=== PATIENT | male | born 1975 | race Caucasian/White ===

== ENCOUNTER 2020-02-09 07:53 | Outpatient (REF) | payer BC, SELFPAY | END 2020-02-09 07:54 | disposition home or self-care (01) | LOC: HO.LAB 07:53 | PROVIDERS: PCP Internal Medicine; Visit Provider Internal Medicine | DX: Z20.828 Contact with and (suspected) exposure to other viral communicable diseases (principal) | CPT/HCPCS: C9803; U0003 ==

== ENCOUNTER 2020-04-11 16:11 | Outpatient (REF) | payer BC, SELFPAY | END 2020-04-11 16:12 | disposition home or self-care (01) | LOC: HO.LAB 16:11 | PROVIDERS: Visit Provider Internal Medicine | DX: Z20.822 Contact with and (suspected) exposure to COVID-19 (principal) | CPT/HCPCS: 36415; C9803; U0003 ==

== ENCOUNTER 2020-04-21 12:11 | Inpatient (IN) | payer BC, SELFPAY ==
[2020-04-21] VITALS (7 sets, daily range): BP systolic 116–156; BP diastolic 66–98; PULSE 96–115; RESP 16–30; TEMP 36.9–39.5; O2SAT 87–97; BMI 33.5
--- NOTE | 2020-04-21 12:31 | ECG_ITS ---
Test Reason : SOB Blood Pressure : / mmHG Vent. Rate : 117 BPM Atrial Rate : 117 BPM P-R Int : 158 ms QRS Dur : 092 ms QT Int : 316 ms P-R-T Axes : 059 -04 014 degrees QTc Int : 440 ms Sinus tachycardia Otherwise normal ECG When compared to the previous EKG of Sinus tachycardia present Referred By: Sharon Plunkett Electronically Signed By:Hadley Eddy
--- NOTE | 2020-04-21 12:31 | XR_ITS ---
EXAMINATION: XR CHEST CLINICAL INFORMATION: SOB, low O2 saturation COMPARISON: CT chest 04/29/2006 TECHNIQUE: Frontal view of the chest was obtained. FINDINGS: The lungs are hypoexpanded with increase interstitial markings in both lungs question interstitial pneumonitis. No consolidation seen. The heart size and pulmonary vascularity is normal. No gross bony abnormality. XR/XR chest 1V IMPRESSION: Bilateral increase interstitial markings, pneumonitis versus infiltrate. The lungs are hypoexpanded.
[2020-04-21 13:02] LABS: MANUAL DIFF FLAG NO
[2020-04-21 13:07] LABS: Basophils Percent Auto 0.1 % (0-2); Hematocrit 53.3 % (42-52); Hemoglobin 17.1 g/dl (14.0-18.0); Imm Gran Abs Auto 0.06 X10*3/uL (0.00-0.03); Imm Gran Pct Auto 0.5 % (0.0-0.4); Lymphocytes Absolute Auto 1.2 X10*3/uL (1.2-4.9); Lymphocytes Percent Auto 9.7 % (20-40); Mean Corpuscular HGB Conc 32.1 g/dl (31.0-36.0); Mean Corpuscular Hemoglobin 26.4 pg (27.0-33.0); Mean Corpuscular Volume 82.4 fL (80-98); Mean Platelet Volume 9.7 fL (9.4-12.4); Monocytes Absolute Auto 0.8 X10*3/uL (0.1-1.2); Monocytes Percent Auto 6.3 % (2-11); Neutrophils Absolute Auto 10.1 X10*3/uL (2.0-8.3); Neutrophils Percent Auto 83.4 % (45-73); Platelet Count 282 X10*3/uL (160-400); Red Blood Count 6.47 X10*6/uL (4.60-5.80); Red Cell Distribution Width 13.1 % (11.0-16.0); White Blood Count 12.1 X10*3/uL (4.8-10.8)
[2020-04-21] MEDS: 0.9 % Sodium Chloride 2,653.53 ML 2653.53 ML IVCONT (13:10)
[2020-04-21 13:13] LABS: INTERNATIONAL NORM RATIO 1.2 (0.9-1.1)
[2020-04-21 13:16] LABS: D Dimer 421 NG/ML; Partial Thromboplastin Time 33.1 SEC (24.1-38.0)
[2020-04-21] MEDS: Albuterol Sulfate (0.083%) 2.5 MG/3 ML VIAL.NEB 10 MG INHALE (13:20)
--- NOTE | 2020-04-21 13:22 | ED_ITS ---
HPI - SOB/Dyspnea General Chief Complaint: Dyspnea Stated Complaint: sob Time Seen by Provider: 04/21/20 12:30 Source: patient Mode of arrival: ambulatory Limitations: no limitations History of Present Illness HPI Narrative: 45yoM c PMHx of diabetes, hypertension, hyperlipidemia, asthma and gastroesophageal reflux disease who recently tested positive for COVID-19 on 04/11/2020 presenting to the ED with complaints of fevers up to 102, chills, generalized weakness, malaise, body aches, dry cough and shortness of breath, SOARES and orthopnea with left-sided chest wall/rib cage, LUQ abd pain worse with palpation for the past few days worse today. Denies any dizziness, lightheadedness, nausea/vomiting, palpitations, focal weakness, extremity edema, calf tenderness, any symptoms or any other symptoms complaints or concerns at this time. MD elicited complaint: shortness of breath, cough and pain with inspiration Pertinent past history: asthma and other (COVID-19) Onset (ago): day(s) Context: recent illness Timing: constant and progressively worsening Severity: moderate Exacerbating factors: lying flat, exertion, coughing, inspiration, talking and deep breaths Relieving factors: rest and upright position Known history of: asthma and diabetes Associated symptoms: pain with inspiration, fever, cough, wheezing, orthopnea and abdominal pain Treatment prior to arrival: none Related Data Home Medications Medication Instructions Recorded Confirmed albuterol sulfate 2 puff INHALATION Q6H PRN 04/21/20 04/21/20 budesonide 0.5 mg INHALATION BID 04/21/20 04/21/20 dulaglutide [Trulicity] 1.5 mg SUBCUT Q7D 04/21/20 04/21/20 empagliflozin [Jardiance] 1 tab PO DAILY 04/21/20 04/21/20 ezetimibe 1 tab PO DAILY 04/21/20 04/21/20 losartan 1 tab PO DAILY 04/21/20 04/21/20 omeprazole 40 mg PO BID@0630,1630 04/21/20 04/21/20 prednisone 2 tab PO QAM 04/21/20 04/21/20 sucralfate 1 tab PO TID 04/21/20 04/21/20 Allergies Allergy/AdvReac Type Severity Reaction Status Date / Time aspirin [ASA] Allergy Severe SWELLING Verified 04/21/20 12:28 ibuprofen [From MOTRIN] Allergy Severe SWELLING Verified 04/21/20 12:28 Review of Systems Review of Systems: Constitutional : + Fever, + Chills, + Fatigue, + Malaise, No Night Sweats ENT/Mouth : No Hearing loss, No Ear Pain, No Nasal Congestion, No Sinus Pain, No Hoarseness, No sore throat, No Rhinorrhea, No Swallowing Difficulty Eyes: No Eye Pain, No Swelling, No Redness, No Foreign Body, No Discharge, No Vision Changes Cardiovascular : + Chest wall pain, + SOB, + Dyspnea on Exertion, + Orthopnea, No Chest pain, No Edema, No extremity swelling, No Palpitations Respiratory : + Cough, + Wheezing, No Sputum, No Wheezing, No Dyspnea Gastrointestinal : No Nausea, No Vomiting, No Diarrhea, No abdominal Pain, No Hematochezia, No Melena Genitourinary : No irregular bleeding, No Dysuria, No Urinary Frequency, No Hematuria, No Urinary Incontinence, No Urgency, No Flank Pain, No Urinary Flow Changes, No Hesitancy Musculoskeletal : + Myalgias, No Joint Swelling, No joint pain, Skin : No Skin Lesions, No rash Neuro : No Weakness, No Numbness, No Paresthesias, No Loss of Consciousness, No Dizziness, No Headache Psych : No Anxiety/Panic, No Depression, No SI/HI/AH/VH Heme/Lymph: No Bruising, No Bleeding,No Lymphadenopathy Endocrine : No Polyuria, No Polydipsia, No Temperature Intolerance Yes all other systems are reviewed and are negative COUNTS INCLUDE 234 BEDS AT THE [facility] Past Medical History Attestation statement: The following information was validated with the patient. Medical History Asthma Diabetes HTN (hypertension) Social History Social History Advance Directives: No Advance Directives Information Provided: No Physical Exam Vital Signs: Vital Signs: Last Vital Signs Temp 103.1 F H 04/21/20 13:27 Pulse 115 H 04/21/20 13:27 Resp 25 H 04/21/20 13:27 BP 137/85 04/21/20 13:27 Pulse Ox 97 04/21/20 13:27 Body Mass Index 33.5 vital signs have been reviewed as normal and appeared to be correct. Blood pressure hypertensive. Heart rate tachycardia. Respiration rate tachypneic. Temperature febrile Oxygen saturation hypoxic. Appearance: Alert. Oriented X3. Moderate respiratory distress. Head: Normal external exam. Normocephalic. Atraumatic. Eyes: PERRLA. EOMI. Conjunctiva and sclera normal. Eyelids normal. ENT: EAC normal. TM's Normal. Pharynx normal. Uvula midline. Moist mucous membranes. No trismus noted. No drooling noted. No muffled voice noted. Neck: Normal inspection. Neck supple. FROM. No adenopathy. Thyroid Normal. Trachea midline. No meningeal signs. No neck mass noted. CVS: Normal heart rate and rhythm. Heart sound normal. No murmurs noted. Pulses normal throughout. Respiratory: Moderate respiratory distress with inspiratory and expiratory wheezing throughout with decreased breath sounds with accessory muscle usage n oted. No rhonchi/rales noted at this time. No flail chest. Chest wall tenderness at the lower left anterior/lateral aspect. No obvious deformities noted. No rashes/lesion/induration/fluctuance/ecchymosis or signs of infection noted. Abdomen: Soft and TTP to LUQ cwith guarding. Bowel sounds normal in all 4 quadrants. No distention noted. No organomegaly noted. No visible injury noted. No rigidity noted. No rebound tenderness noted. Negative Barclay sign/psoas sign/obturator's line/Rovsing sign. Back: No CVA tenderness. Full range of motion noted. Skin: Skin warm and dry. Normal skin color. Normal skin turgor. No rashes/lesions/lacerations noted. Extremities: No lower extremity edema. No calf tenderness noted. Extremities exhibit normal range of motion. Extremities nontender. Neuro: Oriented X 3. No motor deficit. No sensory deficit. Reflexes normal. Course Course Course Narrative: 12:30pm - 45yoM c PMHx of diabetes, hypertension, hyperlipidemia, asthma and gastroeso phageal reflux disease who recently tested positive for COVID-19 on 04/11/2020 presenting to the ED with complaints of fevers up to 102, chills, generalized weakness, malaise, body aches, dry cough and shortness of breath, SOARES and orthopnea with left-sided chest wall/rib cage, LUQ abd pain worse with palpation for the past few days worse today. - on exam patient is noted to be in moderate respiratory distress with inspiratory and expiratory wheezing throughout with accessory muscle usage noted. He is hypertensive, tachycardic, tachypneic, febrile and hypoxic at 89% on room air. Therefore was placed on 4 L of nasal cannula oxygen is now at 97% on room air. - Plan: Labs, chest x-ray, EKG, blood cultures, lactic acid, provide 975 mg of Tylenol and 5 mg of oxycodone for the patient's left upper quadrant/left anterior/lateral chest wall pain, provide a breathing treatment with 10 mg of albuterol, 125 mg of Solu-Medrol and if D-dimer is elevated will CT scan his chest for possible PE and CT scan of abdomen and pelvis with IV contrast to evaluate for any acute processes due to patient's left upper quadrant abdominal pain. Patient receiving 30ml/kg of IV fluids although patient is COVID positive and this is viral COVID sepsis. Med reconciliation order due to patient will need to be admitted due to the hypoxia requiring nasal cannula oxygen.. Reevaluation(s) Reevaluation #1: - patient's labs hemolyzed his labs returned at this time. - WBC 12.1. - D-dimer 421. - BUN 18 - glucose 174 - Ferritin 1128 - ALT 47 - LDH 277 - CRP 18.05 - All other labs WNL. - EKG Sinus tachycardia no acute ischemic changes and similar when compared to prior. - CXR revealed bilateral increased interstitial markings, pneumonitis versus infiltrate the lungs are hypoexpanded - awaiting CTA of chest for PE to admit. Time: 15:32 Reevaluation #2: - CT scan of abd/pelvis c IV contrast revealed enlarged fatty liver. Bilateral renal cysts - CT a of chest for PE negative for PE although revealed ground-glass opacities and infiltrate with bilateral pleural effusions and enlarged heart otherwise no other acute processes noted. - plan is to admit at this time for COVID pneumonia with hypoxia with viral sepsis discuss this patient with Tresa uGy PA-C who will admit the patient. Patient understands agrees the plan. Time: 16:37 MDM - SOB/Dyspnea Differential Diagnosis Differential diagnosis: Likely acute exacerbation of chronic obstructive airways disease, congestive heart failure, pneumonia, asthma with exacerbation, pulmonary embolism, pleural effusion and anemia Medical Records Attestation: I reviewed the patient's medical records. Lab Data Attestation: I reviewed the patient's lab results. Result diagrams: 04/21/20 12:56 04/21/20 14:44 Labs: Lab Results 04/21/20 04/21/20 04/21/20 Range/Units 12:56 12:56 12:56 WBC 12.1 H (4.8-10.8) X10*3/uL RBC 6.47 H (4.60-5.80) X10*6/uL Hgb 17.1 (14.0-18.0) g/dl Hct 53.3 H (42-52) % MCV 82.4 (80-98) fL MCH 26.4 L (27.0-33.0) pg MCHC 32.1 (31.0-36.0) g/dl RDW 13.1 (11.0-16.0) % Plt Count 282 (160-400) X10*3/uL MPV 9.7 (9.4-12.4) fL Immature Gran % (Auto) 0.5 H (0.0-0.4) % Neut % (Auto) 83.4 H (45-73) % Lymph % (Auto) 9.7 L (20-40) % [place] % (Auto) 6.3 (2-11) % Eos % (Auto) 0.0 (0-4) % Baso % (Auto) 0.1 (0-2) % Lymph # (Auto) 1.2 (1.2-4.9) X10*3/uL [place] # (Auto) 0.8 (0.1-1.2) X10*3/uL Eos # (Auto) 0.0 (0.0-0.4) X10*3/uL Baso # (Auto) 0.0 (0.0-0.2) X10*3/uL Abs Immat Gran (auto) 0.06 H (0.00-0.03) X10*3/uL Absolute Neuts (auto) 10.1 H (2.0-8.3) X10*3/uL Absolute Nucleated RBC 0.000 (0.0-0.012) X10*3/uL Nucleated RBC % (auto) 0.0 (0.0-0.2) /100WBC Hold Purple Top SEE NOTE PT (10.8-13.0) SEC INR (0.9-1.1) APTT (24.1-38.0) SEC D-Dimer NG/ML Sodium (135-145) mmol/L Potassium (3.3-5.1) mmol/L Chloride (96-108) mmol/L Carbon Dioxide (22-29) mmol/L Anion Gap (12-20) BUN (9-16) mg/dL Creatinine (0.5-1.4) mg/dL Estim Creat Clear Calc Estimated GFR Random Glucose (60-115) mg/dL Lactic Acid (0.5-2.0) mmol/L Calcium (8.4-10.2) mg/dL Magnesium (1.6-2.6) mg/dL Ferritin Total Bilirubin (0.0-1.0) mg/dL Direct Bilirubin (0.0-0.5) mg/dL AST (5-37) U/L ALT (0-40) U/L Alkaline Phosphatase (39-117) U/L Lactate Dehydrogenase (118-273) U/L C-Reactive Protein (< or = 0.50) mg/dL B-Natriuretic Peptide < 10 (<100) pg/mL Total Protein (6.5-8.0) g/dL Albumin (3.5-5.0) g/dL Procalcitonin ng/mL 04/21/20 04/21/20 04/21/20 Range/Units 12:57 12:57 12:57 WBC (4.8-10.8) X10*3/uL RBC (4.60-5.80) X10*6/uL Hgb (14.0-18.0) g/dl Hct (42-52) % MCV (80-98) fL MCH (27.0-33.0) pg MCHC (31.0-36.0) g/dl RDW (11.0-16.0) % Plt Count (160-400) X10*3/uL MPV (9.4-12.4) fL Immature Gran % (Auto) (0.0-0.4) % Neut % (Auto) (45-73) % Lymph % (Auto) (20-40) % [place] % (Auto) (2-11) % Eos % (Auto) (0-4) % Baso % (Auto) (0-2) % Lymph # (Auto) (1.2-4.9) X10*3/uL [place] # (Auto) (0.1-1.2) X10*3/uL Eos # (Auto) (0.0-0.4) X10*3/uL Baso # (Auto) (0.0-0.2) X10*3/uL Abs Immat Gran (auto) (0.00-0.03) X10*3/uL Absolute Neuts (auto) (2.0-8.3) X10*3/uL Absolute Nucleated RBC (0.0-0.012) X10*3/uL Nucleated RBC % (auto) (0.0-0.2) /100WBC Hold Purple Top PT 14.0 H (10.8-13.0) SEC INR 1.2 H (0.9-1.1) APTT 33.1 (24.1-38.0) SEC D-Dimer 421 NG/ML Sodium (135-145) mmol/L Potassium (3.3-5.1) mmol/L Chloride (96-108) mmol/L Carbon Dioxide (22-29) mmol/L Anion Gap (12-20) BUN (9-16) mg/dL Creatinine (0.5-1.4) mg/dL Estim Creat Clear Calc Estimated GFR Random Glucose (60-115) mg/dL Lactic Acid 1.5 (0.5-2.0) mmol/L Calcium (8.4-10.2) mg/dL Magnesium (1.6-2.6) mg/dL Ferritin Cancelled Total Bilirubin (0.0-1.0) mg/dL Direct Bilirubin (0.0-0.5) mg/dL AST (5-37) U/L ALT (0-40) U/L Alkaline Phosphatase (39-117) U/L Lactate Dehydrogenase (118-273) U/L C-Reactive Protein (< or = 0.50) mg/dL B-Natriuretic Peptide (<100) pg/mL Total Protein (6.5-8.0) g/dL Albumin (3.5-5.0) g/dL Procalcitonin ng/mL 04/21/20 04/21/20 Range/Units 14:44 14:44 WBC (4.8-10.8) X10*3/uL RBC (4.60-5.80) X10*6/uL Hgb (14.0-18.0) g/dl Hct (42-52) % MCV (80-98) fL MCH (27.0-33.0) pg MCHC (31.0-36.0) g/dl RDW (11.0-16.0) % Plt Count (160-400) X10*3/uL MPV (9.4-12.4) fL Immature Gran % (Auto) (0.0-0.4) % Neut % (Auto) (45-73) % Lymph % (Auto) (20-40) % [place] % (Auto) (2-11) % Eos % (Auto) (0-4) % Baso % (Auto) (0-2) % Lymph # (Auto) (1.2-4.9) X10*3/uL [place] # (Auto) (0.1-1.2) X10*3/uL Eos # (Auto) (0.0-0.4) X10*3/uL Baso # (Auto) (0.0-0.2) X10*3/uL Abs Immat Gran (auto) (0.00-0.03) X10*3/uL Absolute Neuts (auto) (2.0-8.3) X10*3/uL Absolute Nucleated RBC (0.0-0.012) X10*3/uL Nucleated RBC % (auto) (0.0-0.2) /100WBC Hold Purple Top PT (10.8-13.0) SEC INR (0.9-1.1) APTT (24.1-38.0) SEC D-Dimer NG/ML Sodium 142 (135-145) mmol/L Potassium 3.4 (3.3-5.1) mmol/L Chloride 109 H (96-108) mmol/L Carbon Dioxide 23 (22-29) mmol/L Anion Gap 13 (12-20) BUN 18 H (9-16) mg/dL Creatinine 0.75 (0.5-1.4) mg/dL Estim Creat Clear Calc 123.4 Estimated GFR > 60 Random Glucose 174 H (60-115) mg/dL Lactic Acid (0.5-2.0) mmol/L Calcium 7.3 L (8.4-10.2) mg/dL Magnesium 2.0 (1.6-2.6) mg/dL Ferritin 1128 H Total Bilirubin 0.6 (0.0-1.0) mg/dL Direct Bilirubin 0.2 (0.0-0.5) mg/dL AST 24 (5-37) U/L ALT 47 H (0-40) U/L Alkaline Phosphatase 75 (39-117) U/L Lactate Dehydrogenase 277 H (118-273) U/L C-Reactive Protein 18.05 H (< or = 0.50) mg/dL B-Natriuretic Peptide (<100) pg/mL Total Protein 6.1 L (6.5-8.0) g/dL Albumin 3.5 (3.5-5.0) g/dL Procalcitonin 0.29 ng/mL Imaging Data Chest x-ray: Attestation: I personally reviewed and interpreted this imaging study as follows: Radiologist's impression: FINDINGS: The lungs are hypoexpanded with increase interstitial markings in both lungs question interstitial pneumonitis. No consolidation seen. The heart size and pulmonary vascularity is normal. No gross bony abnormality. XR/XR chest 1V IMPRESSION: Bilateral increase interstitial markings, pneumonitis versus infiltrate. The lungs are hypoexpanded. CTA of chest for PE: Attestation: I personally reviewed and interpreted this imaging study as follows: Radiologist's impression: FINDINGS: There is good opacification of the pulmonary arteries. No evidence of large or central pulmonary embolism seen. Evaluation of the smaller segmental and subsegmental pulmonary artery artifact from respiratory motion There is bilateral patchy peripheral groundglass attenuation and more solid-appearing infiltrate, greatest at the lung bases. Chest CT appearance is compatible with Covid infection. There is shotty mediastinal lymphadenopathy. There is a prominent right subcarinal or hilar lymph node measuring 1.5 x 1.8 cm. There are additional smaller bilateral hilar lymph nodes. The heart is enlarged. There is no pericardial effusion. The thoracic aorta is normal in caliber. There are small bilateral pleural effusions, right greater than left. No chest wall mass or enlarged axillary lymph nodes are seen. Review at bone window is unremarkable. IMPRESSION: No evidence of large or central pulmonary embolism. Evaluation of smaller segmental and subsegmental pulmonary arteries is respiratory motion and bilateral peripheral groundglass attenuation and denser infiltrate, greatest at the lung bases. The appearance is compatible with Covid infection. Small bilateral pleural effusions, right greater than left. Right subcarinal or hilar lymph nodes. Enlarged heart. CT scan of abdomen and pelvis with IV contrast: Attestation: I personally reviewed and interpreted this imaging study as follows: Radiologist's impression: FINDINGS: There is patchy basilar infiltrates compatible with diagnosis of Covid infection. The liver is low in attenuation suggestive of fatty lesion. The liver is slightly enlarged. The gallbladder is normal. No biliary duct dilatation. The spleen, pancreas, and adrenal glands are normal. There is a 3 cm left renal cyst. There is a small 7 mm right fifth. The bladder and prostate gland are unremarkable. Small and large bowel is unremarkable. Stomach is unremarkable unremarkable. The appendix is unremarkable. No ascites or adenopathy. Vascular structures are normal. No hernia is seen. Bony structures are CT/CT abdomen pelvis w con IMPRESSION: Enlarged fatty liver. Bilateral renal cysts. ECG Data Attestation: I personally reviewed and interpreted this ECG as follows: ECG interpretation date: 04/21/20 ECG interpretation time: 13:53 Interpretation: Sinus tachycardia with ventricular rate of 117 with a normal TX interval normal QRS duration normal QT/QTC interval. No acute ischemic changes noted. Similar compared to prior EKG 03/22/2016. Critical Care Time Critical Care Time Critical Care Time: Yes Total Critical Care Time: 60 Attestation: I personally attest to this time spent taking care of the patient Discharge Plan Discharge Clinical Impression: Asthma with exacerbation, COVID-19, Hypoxia, Febrile, Viral sepsis, Pleural effusion, Renal cyst, Enlarged heart Patient Disposition: Admitted As Inpatient
[2020-04-21] MEDS: methylPREDNISolone Sod Succ/PF 125 MG/2 ML VIAL IVPUSH (13:24)
[2020-04-21] MEDS: cefTRIAXone sodium 1 GM in 0.9 % Sodium Chloride 100 ML IV (13:24)
--- NOTE | 2020-04-21 13:26 | CT_ITS ---
EXAMINATION: CT ABDOMEN AND PELVIS WITH IV CONTRAST CLINICAL INFORMATION: Left upper quadrant pain COMPARISON: None TECHNIQUE: Axial images through the abdomen and pelvis following oral and 85 mL Omnipaque 350 intravenous contrast. Sagittal and coronal technologist workstation were performed centimeter. This CT examination was performed using dose optimization techniques as appropriate, variously including the following: *Automated exposure control *Adjustment of mA and/or kV according to patient size (this includes techniques or standardized protocols for targeted exams where dose is matched to indication/reason for exam; i.e. extremities or head) *Use of iterative reconstruction technique FINDINGS: There is patchy basilar infiltrates compatible with diagnosis of Covid infection. The liver is low in attenuation suggestive of fatty lesion. The liver is slightly enlarged. The gallbladder is normal. No biliary duct dilatation. The spleen, pancreas, and adrenal glands are normal. There is a 3 cm left renal cyst. There is a small 7 mm right fifth. The bladder and prostate gland are unremarkable. Small and large bowel is unremarkable. Stomach is unremarkable unremarkable. The appendix is unremarkable. No ascites or adenopathy. Vascular structures are normal. No hernia is seen. Bony structures are CT/CT angio chest PE protocol IMPRESSION: Enlarged fatty liver. Bilateral renal cysts. EXAMINATION: Chest CTA CLINICAL INFORMATION: Covid infection. Hypoxia and elevated d-dimer. Evaluate for pulmonary embolism COMPARISON: None. TECHNIQUE: Axial images through the chest following 85 mL Omnipaque contrast. Sagittal and coronal reconstructions on the technologist workstation were performed centimeter. This CT examination was performed using dose optimization techniques as appropriate, variously including the following: *Automated exposure control *Adjustment of mA and/or kV according to patient size (this includes techniques or standardized protocols for targeted exams where dose is matched to indication/reason for exam; i.e. extremities or head) *Use of iterative reconstruction technique. FINDINGS: There is good opacification of the pulmonary arteries. No evidence of large or central pulmonary embolism seen. Evaluation of the smaller segmental and subsegmental pulmonary artery artifact from respiratory motion There is bilateral patchy peripheral groundglass attenuation and more solid-appearing infiltrate, greatest at the lung bases. Chest CT appearance is compatible with Covid infection. There is shotty mediastinal lymphadenopathy. There is a prominent right subcarinal or hilar lymph node measuring 1.5 x 1.8 cm. There are additional smaller bilateral hilar lymph nodes. The heart is enlarged. There is no pericardial effusion. The thoracic aorta is normal in caliber. There are small bilateral pleural effusions, right greater than left. No chest wall mass or enlarged axillary lymph nodes are seen. Review at bone window is unremarkable. IMPRESSION: No evidence of large or central pulmonary embolism. Evaluation of smaller segmental and subsegmental pulmonary arteries is respiratory motion and bilateral peripheral groundglass attenuation and denser infiltrate, greatest at the lung bases. The appearance is compatible with Covid infection. Small bilateral pleural effusions, right greater than left. Right subcarinal or hilar lymph nodes. Enlarged heart.
[2020-04-21 13:31] LABS: Lactic Acid 1.5 mmol/L (0.5-2.0)
--- NOTE | 2020-04-21 13:39 | PC.NURSE ---
With pt's permission, updated his sister Faustina with current status.
[2020-04-21 13:42] LABS: B Type Natriuretic Peptide < 10 pg/mL (<100)
[2020-04-21] MEDS: oxyCODONE HCl Immed Release 5 MG TABLET PO (14:03)
[2020-04-21] MEDS: Acetaminophen 325 MG TABLET 975 MG PO (14:03)
[2020-04-21 15:12] LABS: Alanine Aminotransferase 47 U/L (0-40); Albumin Level 3.5 g/dL (3.5-5.0); Alkaline Phosphatase 75 U/L (39-117); Anion Gap 13 (12-20); Aspartate Amino Transferase 24 U/L (5-37); Bilirubin Direct 0.2 mg/dL (0.0-0.5); Bilirubin Total 0.6 mg/dL (0.0-1.0); Blood Urea Nitrogen 18 mg/dL (9-16); C Reactive Protein 18.05 mg/dL (< or = 0.50); Calcium 7.3 mg/dL (8.4-10.2); Carbon Dioxide 23 mmol/L (22-29); Chloride 109 mmol/L (96-108); Creatinine Clr Calc Pharmacy 123.4; Estimated Glomerular Filt Rate > 60; Glucose Random 174 mg/dL (60-115); Lactate Dehydrogenase 277 U/L (118-273); Potassium 3.4 mmol/L (3.3-5.1); Sodium 142 mmol/L (135-145); Total Protein 6.1 g/dL (6.5-8.0)
[2020-04-21 15:30] LABS: Procalcitonin 0.29 ng/mL
[2020-04-21 15:31] LABS: Ferritin 1128 ng/mL (20-250)
[2020-04-21] MEDS: iohexoL 350 MG/ML 100 ML INFUS..BTL IV (15:45)
[2020-04-21 17:39] LABS: Color Urine STRAW; Glucose Urine UA 500 MG/DL (NEG); Leukocyte Esterase Urine NEG (NEG); Nitrite Urine NEG (NEG); PH 5.5 (5.0-8.0); Urine Blood NEG (NEG); Urine Ketones >=80 MG/DL (NEG); Urine Protein NEG (NEG-TRACE)
[2020-04-21 17:40] LABS: Appearance Urine CLEAR
[2020-04-21 18:00] LABS: Glucose, Whole Blood 234 mg/dL (60-115)
--- NOTE | 2020-04-21 18:03 | P.HPHOSP_ITS ---
History of Present Illness Date of Service: 04/21/20 Chief Complaint: Shortness of breath 45-year-old male with diabetes hypertension who was diagnosed with the COVID-19 on April 11 and the managed conservatively. He said he had felt better but then over the last several days also he has had increasing symptoms with a shortness of breath of fever and the presented to the emergency room where he was reportedly noted to be hypoxic with oxygen saturation of 89% on room air up to 93-97% with by nasal cannula. Checks x-ray showed bilateral infiltrate compatible with viral pneumonia and this was confirmed on a CT scan as well and pulmonary embolism is excluded. Patient is given ceftriaxone and azithromycin and Solu-Medrol. Review of Systems Review of Systems: Gen: + fever Resp: +sob, +cough CV: no chest, no SOARES, no leg edema GI: No n/v, no abd pain Neuro: No confusion [facility] Medical History Asthma Diabetes HTN (hypertension) Family history: reviewed and not pertinent Social History (Updated 04/21/20 @ 18:08 by Donn Ga MD) Alcohol intake: never Smoking Status: Never smoker Advance Directives: No Advance Directives Information Provided: No Meds Allergies Allergy/AdvReac Type Severity Reaction Status Date / Time aspirin [ASA] Allergy Severe SWELLING Verified 04/21/20 12:28 ibuprofen [From MOTRIN] Allergy Severe SWELLING Verified 04/21/20 12:28 Home Medications Medication Instructions Recorded Confirmed Type albuterol sulfate 2 puff INHALATION Q6H PRN 04/21/20 04/21/20 History budesonide 0.5 mg INHALATION BID 04/21/20 04/21/20 History dulaglutide [Trulicity] 1.5 mg SUBCUT Q7D 04/21/20 04/21/20 History empagliflozin [Jardiance] 1 tab PO DAILY 04/21/20 04/21/20 History ezetimibe 1 tab PO DAILY 04/21/20 04/21/20 History losartan 1 tab PO DAILY 04/21/20 04/21/20 History omeprazole 40 mg PO BID@0630,1630 04/21/20 04/21/20 History prednisone 2 tab PO QAM 04/21/20 04/21/20 History sucralfate 1 tab PO TID 04/21/20 04/21/20 History Physical Exam Vital Signs and Narrative: Vital Signs: Last Vital Signs Temp 98.4 F 04/21/20 17:14 Pulse 109 H 04/21/20 17:14 Resp 22 H 04/21/20 17:14 BP 118/66 04/21/20 17:14 Pulse Ox 92 04/21/20 17:14 Body Mass Index 33.5 Constitutional Awake and Alert, No apparent distress Neck Supple, No lymphadenopathy Cardiovascular RRR, No M/R/G, S1 S2, No S3 S4, No pedal edema Respiratory normal lung expansion, no accessory muscle use. Gastrointestinal Non tender, Non-distended Skin No rash Neurological Alert & oriented x3 Psychological Appropriate affect Results Labs CBC and Chem 7: 04/21/20 12:56 04/21/20 14:44 Labs: Laboratory Results - last 24 hr 04/21/20 04/21/20 04/21/20 12:56 12:56 12:56 MCV 82.4 MCH 26.4 L MCHC 32.1 RDW 13.1 Plt Count 282 MPV 9.7 Immature Gran % (Auto) 0.5 H Neut % (Auto) 83.4 H Lymph % (Auto) 9.7 L [place] % (Auto) 6.3 Eos % (Auto) 0.0 Baso % (Auto) 0.1 Lymph # (Auto) 1.2 [place] # (Auto) 0.8 Eos # (Auto) 0.0 Baso # (Auto) 0.0 Abs Immat Gran (auto) 0.06 H Absolute Neuts (auto) 10.1 H Absolute Nucleated RBC 0.000 Nucleated RBC % (auto) 0.0 Hold Purple Top SEE NOTE PT INR APTT D-Dimer Anion Gap Estim Creat Clear Calc Estimated GFR POC Glucose Random Glucose Lactic Acid Calcium Magnesium Ferritin Total Bilirubin Direct Bilirubin AST ALT Alkaline Phosphatase Lactate Dehydrogenase C-Reactive Protein B-Natriuretic Peptide < 10 Total Protein Albumin Procalcitonin Urine Color Urine Appearance Urine pH Ur Specific Lucinda Urine Protein Urine Glucose (UA) Urine Ketones Urine Blood Urine Nitrite Ur Leukocyte Esterase 04/21/20 04/21/20 04/21/20 12:57 12:57 12:57 MCV MCH MCHC RDW Plt Count MPV Immature Gran % (Auto) Neut % (Auto) Lymph % (Auto) [place] % (Auto) Eos % (Auto) Baso % (Auto) Lymph # (Auto) [place] # (Auto) Eos # (Auto) Baso # (Auto) Abs Immat Gran (auto) Absolute Neuts (auto) Absolute Nucleated RBC Nucleated RBC % (auto) Hold Purple Top PT 14.0 H INR 1.2 H APTT 33.1 D-Dimer 421 Anion Gap Estim Creat Clear Calc Estimated GFR POC Glucose Random Glucose Lactic Acid 1.5 Calcium Magnesium Ferritin Cancelled Total Bilirubin Direct Bilirubin AST ALT Alkaline Phosphatase Lactate Dehydrogenase C-Reactive Protein B-Natriuretic Peptide Total Protein Albumin Procalcitonin Urine Color Urine Appearance Urine pH Ur Specific Lucinda Urine Protein Urine Glucose (UA) Urine Ketones Urine Blood Urine Nitrite Ur Leukocyte Esterase 04/21/20 04/21/20 04/21/20 14:44 14:44 17:27 MCV MCH MCHC RDW Plt Count MPV Immature Gran % (Auto) Neut % (Auto) Lymph % (Auto) [place] % (Auto) Eos % (Auto) Baso % (Auto) Lymph # (Auto) [place] # (Auto) Eos # (Auto) Baso # (Auto) Abs Immat Gran (auto) Absolute Neuts (auto) Absolute Nucleated RBC Nucleated RBC % (auto) Hold Purple Top PT INR APTT D-Dimer Anion Gap 13 Estim Creat Clear Calc 123.4 Estimated GFR > 60 POC Glucose Random Glucose 174 H Lactic Acid Calcium 7.3 L Magnesium 2.0 Ferritin 1128 H Total Bilirubin 0.6 Direct Bilirubin 0.2 AST 24 ALT 47 H Alkaline Phosphatase 75 Lactate Dehydrogenase 277 H C-Reactive Protein 18.05 H B-Natriuretic Peptide Total Protein 6.1 L Albumin 3.5 Procalcitonin 0.29 Urine Color STRAW Urine Appearance CLEAR Urine pH 5.5 Ur Specific Lucinda 1.010 Urine Protein NEG Urine Glucose (UA) 500 H Urine Ketones >=80 Urine Blood NEG Urine Nitrite NEG Ur Leukocyte Esterase NEG 04/21/20 17:37 MCV MCH MCHC RDW Plt Count MPV Immature Gran % (Auto) Neut % (Auto) Lymph % (Auto) [place] % (Auto) Eos % (Auto) Baso % (Auto) Lymph # (Auto) [place] # (Auto) Eos # (Auto) Baso # (Auto) Abs Immat Gran (auto) Absolute Neuts (auto) Absolute Nucleated RBC Nucleated RBC % (auto) Hold Purple Top PT INR APTT D-Dimer Anion Gap Estim Creat Clear Calc Estimated GFR POC Glucose 234 H Random Glucose Lactic Acid Calcium Magnesium Ferritin Total Bilirubin Direct Bilirubin AST ALT Alkaline Phosphatase Lactate Dehydrogenase C-Reactive Protein B-Natriuretic Peptide Total Protein Albumin Procalcitonin Urine Color Urine Appearance Urine pH Ur Specific Lucinda Urine Protein Urine Glucose (UA) Urine Ketones Urine Blood Urine Nitrite Ur Leukocyte Esterase Imaging Radiologist's Impressions: Impressions Chest X-Ray 04/21/20 12:31 IMPRESSION: Bilateral increase interstitial markings, pneumonitis versus infiltrate. The lungs are hypoexpanded. Chest CTA 04/21/20 13:26 IMPRESSION: Enlarged fatty liver. Bilateral renal cysts. EXAMINATION: Chest CTA CLINICAL INFORMATION: Covid infection. Hypoxia and elevated d-dimer. Evaluate for pulmonary embolism COMPARISON: None. TECHNIQUE: Axial images through the chest following 85 mL Omnipaque contrast. Sagittal and coronal reconstructions on the technologist workstation were performed centimeter. This CT examination was performed using dose optimization techniques as appropriate, variously including the following: *Automated exposure control *Adjustment of mA and/or kV according to patient size (this includes techniques or standardized protocols for targeted exams where dose is matched to indication/reason for exam; i.e. extremities or head) *Use of iterative reconstruction technique. FINDINGS: There is good opacification of the pulmonary arteries. No evidence of large or central pulmonary embolism seen. Evaluation of the smaller segmental and subsegmental pulmonary artery artifact from respiratory motion There is bilateral patchy peripheral groundglass attenuation and more solid-appearing infiltrate, greatest at the lung bases. Chest CT appearance is compatible with Covid infection. There is shotty mediastinal lymphadenopathy. There is a prominent right subcarinal or hilar lymph node measuring 1.5 x 1.8 cm. There are additional smaller bilateral hilar lymph nodes. The heart is enlarged. There is no pericardial effusion. The thoracic aorta is normal in caliber. There are small bilateral pleural effusions, right greater than left. No chest wall mass or enlarged axillary lymph nodes are seen. Review at bone window is unremarkable. IMPRESSION: No evidence of large or central pulmonary embolism. Evaluation of smaller segmental and subsegmental pulmonary arteries is respiratory motion and bilateral peripheral groundglass attenuation and denser infiltrate, greatest at the lung bases. The appearance is compatible with Covid infection. Small bilateral pleural effusions, right greater than left. Right subcarinal or hilar lymph nodes. Enlarged heart. Abdomen/Pelvis CT 04/21/20 13:28 IMPRESSION: Enlarged fatty liver. Bilateral renal cysts. EXAMINATION: Chest CTA CLINICAL INFORMATION: Covid infection. Hypoxia and elevated d-dimer. Evaluate for pulmonary embolism COMPARISON: None. TECHNIQUE: Axial images through the chest following 85 mL Omnipaque contrast. Sagittal and coronal reconstructions on the technologist workstation were performed centimeter. This CT examination was performed using dose optimization techniques as appropriate, variously including the following: *Automated exposure control *Adjustment of mA and/or kV according to patient size (this includes techniques or standardized protocols for targeted exams where dose is matched to indication/reason for exam; i.e. extremities or head) *Use of iterative reconstruction technique. FINDINGS: There is good opacification of the pulmonary arteries. No evidence of large or central pulmonary embolism seen. Evaluation of the smaller segmental and subsegmental pulmonary artery artifact from respiratory motion There is bilateral patchy peripheral groundglass attenuation and more solid-appearing infiltrate, greatest at the lung bases. Chest CT appearance is compatible with Covid infection. There is shotty mediastinal lymphadenopathy. There is a prominent right subcarinal or hilar lymph node measuring 1.5 x 1.8 cm. There are additional smaller bilateral hilar lymph nodes. The heart is enlarged. There is no pericardial effusion. The thoracic aorta is normal in caliber. There are small bilateral pleural effusions, right greater than left. No chest wall mass or enlarged axillary lymph nodes are seen. Review at bone window is unremarkable. IMPRESSION: No evidence of large or central pulmonary embolism. Evaluation of smaller segmental and subsegmental pulmonary arteries is respiratory motion and bilateral peripheral groundglass attenuation and denser infiltrate, greatest at the lung bases. The appearance is compatible with Covid infection. Small bilateral pleural effusions, right greater than left. Right subcarinal or hilar lymph nodes. Enlarged heart. Assessment and Plan (1) COVID-19: Status: Acute (2) Hypoxia: Status: Acute (3) Asthma with exacerbation: Status: Acute (4) Hyperlipidemia: Status: Acute (5) HTN (hypertension): Status: Acute (6) Diabetes: Status: Acute 45-year-old male with diabetes hypertension hyperlipidemia at diagnosed with COVID 10 days ago presented with increasing dyspnea and hypoxia at bilateral infiltrate compatible with viral pneumonia although at this point superimposed bacterial infection cannot be excluded. He has a mild leukocytosis. Plan 1. COVID infection with a viral pneumonia 2. Acute hypoxic respiratory failure related to COVID-19 -will treat with dexamethasone 6 mg daily -oxygen as needed. To maintain oxygen saturation above 90%. -he is not a candidate for remdesivir -empiric antibiotics (azithromycin) 2. Acute exacerbation of asthma--likely related to COVID-19. -bronchodilator by GI MDI -steroid as above. 3. Diabetes continue home medication, sliding scale insulin and check glucose before meal and at bedtime. Trulicity amd Jardiance not on fourmulary 4. Hypertension--continue losartan. 5. Hyperlipidemia --Zetia 6. GERD--omeprazole. 7. DVT prophylaxis with Lovenox.
[2020-04-21] MEDS: Enoxaparin Sodium 40 MG/0.4 ML SYRINGE SUBCUT (18:34)
--- NOTE | 2020-04-21 19:46 | PC.NURSE ---
RT to give 1830 inhaler.
[2020-04-21] MEDS: Albuterol Sulfate 90 MCG 8 GM INHALER 2 PUFF INHALE ×3 (19:58→23:55)
[2020-04-21 21:04] LABS: Glucose, Whole Blood 299 mg/dL (60-115)
[2020-04-21] MEDS: Sucralfate 1 GM TABLET PO (21:11)
[2020-04-21] MEDS: Insulin Lispro 100 UNIT/ML 3 ML VIAL SUBCUT (21:12)
--- NOTE | 2020-04-21 21:15 | PC.NURSE ---
POC 299, medicated with 6 units of Insulin per MAR. Pt requesting to use the bathroom, ambulating to the bathroom with a steady gait. VSS. Continue to monitor.
--- NOTE | 2020-04-21 21:25 | PC.NURSE ---
Pt requesting to use the bathroom, ambulating with portable O2 tank to the bathroom. Upon return from the bathroom, while on O2 @ 5 lpm, pt noted to have an O2 sat of 87%. Pt coughing, tight dry cough. Pt states the cough has been persistent and unrelenting. Pt medicated with PRN inhaler with some relief. VSS at this time, call vargas within reach. Pt provided with a pillow, lights dim for comfort. Continue to monitor.
[2020-04-22] VITALS (11 sets, daily range): BP systolic 124–159; BP diastolic 66–78; PULSE 76–92; RESP 16–29; TEMP 36.6–37.3; O2SAT 87–97
[2020-04-22] MEDS: 0.9 % Sodium Chloride Flush 3 ML SYRINGE IVFLUSH ×4 (00:07→22:16)
--- NOTE | 2020-04-22 00:07 | PC.NURSE ---
Pt sleeping in bed at this time, wakes easily for inhaler. Denies pain/discomfort, SOB. Continue to monitor.
[2020-04-22] MEDS: Albuterol Sulfate 90 MCG 8 GM INHALER 2 PUFF INHALE ×5 (02:29→20:52)
[2020-04-22] MEDS: Acetaminophen 325 MG TABLET 650 MG PO (05:20)
--- NOTE | 2020-04-22 05:22 | PC.NURSE ---
Pt found resting in bed, reporting discomfort to chest from coughing. Pt states he has had the discomfort to his chest since he arrived, pt states it is the same pain that brought him to the ED. Pt states worsening chest discomfort with inspiration, position and movement. Pt requesting pain medication, states the cough syrup with codeine worked well. Pt medicated with PRN Tylenol for 6/10 discomfort from coughing. 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 Pt aware of 0630 POC and meds. Continue to monitor.
[2020-04-22] MEDS: Omeprazole 40 MG CAPSULE.DR PO ×2 (06:09→17:16)
--- NOTE | 2020-04-22 06:10 | PC.NURSE ---
POC 186 mg/dl. Medicated per MAY. VSS.
[2020-04-22 06:21] LABS: Glucose, Whole Blood 186 mg/dL (60-115)
[2020-04-22] MEDS: dexAMETHasone sod phosphate 4 MG/ML VIAL 6 MG IVPUSH (08:34)
[2020-04-22] MEDS: Insulin Lispro 100 UNIT/ML 3 ML VIAL SUBCUT ×4 (08:37→22:15)
[2020-04-22] MEDS: Losartan Potassium 50 MG TABLET PO (08:38)
[2020-04-22] MEDS: Ezetimibe 10 MG TABLET PO (08:38)
[2020-04-22] MEDS: Sucralfate 1 GM TABLET PO ×3 (08:38→22:15)
[2020-04-22 11:41] LABS: Glucose, Whole Blood 245 mg/dL (60-115)
--- NOTE | 2020-04-22 12:10 | PC.NURSE ---
patient o2 sat noted to be 87% on 5lpm via NC, patient attempted prone position w/ slow deep breaths, no improvement. non rebeather at 15lpm, O2 sat increased to 99%. tachypnea, NSR via tele. alert and oriented, able to speak in short sentences.
--- NOTE | 2020-04-22 14:46 | PC.NURSE ---
pt resting in the stretcher, alert and oriented currently on a non-rebreather and satting at 95%, pt' sats dropped to 88% on 5L, reports having some chest pressure at about 4/10, vs stable, ns on the moniotr.
--- NOTE | 2020-04-22 14:46 | HO.PM.IMPN ---
Subjective Subjective Date of Service: 04/23/20 Interval History: Seen in f/u for covid w/ acute hypoxic resp failure. Oxygen requirement has gone down and he is satting better Review of Systems Gen: + fever Resp: +sob, +cough CV: no chest, no SOARES, no leg edema GI: No n/v, no abd pain Neuro: No confusion Physical Exam Vital Signs: Vital Signs: Last Vital Signs Temp 99.1 F 04/22/20 06:00 Pulse 84 04/22/20 12:09 Resp 29 H 04/22/20 12:09 BP 124/67 04/22/20 12:09 Pulse Ox 97 04/22/20 12:09 Body Mass Index 33.5 General: AO X 3, no acute distress Resp: normal respiratory effort CVS: S1,S2,RRR GI: +BS, NT, no distention Skin: No rash Neuro: motor grossly intact Psych: appropriate affect Objective Data Current Medications Generic Name Dose Route Start Last Admin Trade Name Freq PRN Reason Stop Dose Admin Acetaminophen 650 mg 04/21/20 18:21 04/22/20 05:20 Acetaminophen 325 Mg Tablet PO 650 mg Q6H PRN Administration Pain, Mild (Pain Scale 1-3) Albuterol Sulfate 2 puff 04/21/20 18:24 04/21/20 21:23 Albuterol Sulfate 90 Mcg 8 Gm Inhaler INHALE 2 puff Q2H PRN Administration Shortness of Breath Albuterol Sulfate 2 puff 04/22/20 12:00 04/22/20 11:06 Albuterol Sulfate 90 Mcg 8 Gm Inhaler INHALE 2 puff RQ4H LINDA Administration Dexamethasone Sodium Phosphate 6 mg 04/22/20 14:45 Dexamethasone Sod Phosphate 4 Mg/Ml Vial IVPUSH DAILY LINDA Ezetimibe 10 mg 04/22/20 09:00 04/22/20 08:38 Ezetimibe 10 Mg Tablet PO 10 mg DAILY LINDA Administration Enoxaparin Sodium 40 mg 04/21/20 18:30 04/21/20 18:34 Enoxaparin Sodium 40 Mg/0.4 Ml Syringe SUBCUT 40 mg Q24H LINDA Administration Insulin Human Lispro 0 unit 04/21/20 21:00 04/22/20 11:47 Insulin Lispro 100 Unit/Ml 3 Ml Vial SUBCUT 4 unit QIDACHS LINDA Administration Protocol Losartan Potassium 50 mg 04/22/20 09:00 04/22/20 08:38 Losartan Potassium 50 Mg Tablet PO 50 mg DAILY LINDA Administration Protocol Magnesium Hydroxide 30 ml 04/21/20 18:21 Milk Of Magnesia 30 Ml Oral.Susp PO DAILY PRN Constipation Omeprazole 40 mg 04/22/20 06:30 04/22/20 06:09 Omeprazole 40 Mg Capsule. PO 40 mg BID@7206,2720 [facility] Administration Pharmacy Consult 1 each 04/21/20 12:33 Consult Rx Perform Med Rec MISCELLANE ONCE PRN Consult order Sodium Chloride 3 ml 04/22/20 00:00 04/22/20 08:38 0.9 % Sodium Chloride Flush 3 Ml Syringe IVFLUSH 3 ml QSHIFT [facility] Administration Sucralfate 1 gm 04/21/20 21:00 04/22/20 14:44 Sucralfate 1 Gm Tablet PO 1 gm TID LINDA Administration Zolpidem Tartrate 5 mg 04/21/20 18:21 Zolpidem Tartrate 5 Mg Tablet PO BEDTIME PRN Insomnia Labs CBC & Chem 7: 04/21/20 12:56 04/21/20 14:44 Assessment and Plan (1) COVID-19: Status: Acute (2) Hypoxia: Status: Acute (3) Asthma with exacerbation: Status: Acute (4) Hyperlipidemia: Status: Acute (5) HTN (hypertension): Status: Acute (6) Diabetes: Status: Acute Assessment and Plan: 45-year-old male with diabetes hypertension hyperlipidemia at diagnosed with COVID-19 on 04/11/20 (10 prior to admission) and conservatively and now here with increasing dyspnea and hypoxia, bilateral infiltrate on CXR compatible with viral pneumonia, although the posibility of bacterial infection cannot be excluded. Plan 1. COVID infection with a viral pneumonia 2. Acute hypoxic respiratory failure related to COVID-19 -will treat with dexamethasone 6 mg daily D3/10 -Not candidate for remdesevir -check IgG level, -oxygen to maintain oxygen saturation above 90%. -he is not a candidate for remdesivir -empiric antibiotics (azithromycin) 2. Acute exacerbation of asthma--likely related to COVID-19. -bronchodilator by MDI -Dexamethasone as above. 3. Diabetes continue home medication, sliding scale insulin and check glucose before meal and at bedtime. Trulicity amd Jardiance not on fourmulary 4. Hypertension--continue losartan. 5. Hyperlipidemia --Zetia 6. GERD--omeprazole. 7. DVT prophylaxis with Lovenox.
[2020-04-22] MEDS: cefTRIAXone sodium 1 GM in 0.9 % Sodium Chloride 50 ML IV (15:53)
--- NOTE | 2020-04-22 15:55 | PC.NURSE ---
bandar rt decreased the non-rebreather from 15l down to 12l, pt satting at 95 at this time.
[2020-04-22] MEDS: Azithromycin 500 MG in 0.9 % Sodium Chloride 250 ML 125 MG IV (16:58)
--- NOTE | 2020-04-22 18:31 | PC.NURSE ---
called [facility] [place] [facility] awaiting call back
[2020-04-22] MEDS: Enoxaparin Sodium 40 MG/0.4 ML SYRINGE SUBCUT (18:50)
[2020-04-22 21:33] LABS: Glucose, Whole Blood 289 mg/dL (60-115)
[2020-04-23] VITALS (9 sets, daily range): BP systolic 115–157; BP diastolic 67–98; PULSE 69–88; RESP 18–99; TEMP 35.5–36.8; O2SAT 89–99
[2020-04-23 05:19] LABS: Glucose, Whole Blood 266 mg/dL (60-115)
[2020-04-23] MEDS: Omeprazole 40 MG CAPSULE.DR PO ×2 (06:08→15:16)
[2020-04-23] MEDS: Albuterol Sulfate 90 MCG 8 GM INHALER 2 PUFF INHALE ×3 (07:37→14:55)
[2020-04-23 08:06] LABS: Glucose, Whole Blood 236 mg/dL (60-115)
[2020-04-23] MEDS: 0.9 % Sodium Chloride Flush 3 ML SYRINGE IVFLUSH ×3 (08:12→23:24)
[2020-04-23] MEDS: Ezetimibe 10 MG TABLET PO (08:12)
[2020-04-23] MEDS: Sucralfate 1 GM TABLET PO ×3 (08:12→20:53)
[2020-04-23] MEDS: dexAMETHasone sod phosphate 4 MG/ML VIAL 6 MG IVPUSH (08:12)
[2020-04-23] MEDS: Insulin Lispro 100 UNIT/ML 3 ML VIAL SUBCUT ×4 (08:13→20:53)
[2020-04-23] MEDS: Losartan Potassium 50 MG TABLET PO (08:13)
[2020-04-23 11:25] LABS: Glucose, Whole Blood 249 mg/dL (60-115)
[2020-04-23] MEDS: cefTRIAXone sodium 1 GM in 0.9 % Sodium Chloride 50 ML IV (15:12)
--- NOTE | 2020-04-23 15:13 | MHC.CM.PN ---
PT ON ISOLATION UNIT, SYEDA CONTACTED HIM VIA CELL PHONE [phone]. PT REPORTS HE LIVES AT HOME WITH HIS AND HE IS FULLY INDEPENDENT WITH CARE AND MOBILITY. PT WORKS AND DRIVES. PT REPORTS THE ONLY DME HE HAS IS A NEBULIZER. PT DOES NOT HAVE A HCP AND IS INTERESTED IN RECEIVING INFORMATION ABOUT COMPLETING ONE. INFORMATION AND DOCUMENT WILL BE MAILED TO PT HOME WELL A SECOND BLANK DOCUMENT IN CASE HIS CHOOSES TO COMPLETE ONE. CURRENT DC PLAN IS HOME WITH NO SERVICES PT WILL SELF ARRANGE TRANSPORTATION
[2020-04-23] MEDS: Azithromycin 500 MG in 0.9 % Sodium Chloride 250 ML 125 MG IV (15:51)
[2020-04-23 16:03] LABS: Glucose, Whole Blood 316 mg/dL (60-115)
[2020-04-23] MEDS: Enoxaparin Sodium 40 MG/0.4 ML SYRINGE SUBCUT (18:09)
[2020-04-23 19:37] LABS: Glucose, Whole Blood 196 mg/dL (60-115)
[2020-04-24] VITALS (11 sets, daily range): BP systolic 132–156; BP diastolic 76–97; PULSE 56–82; RESP 18–20; TEMP 36.4–37.2; O2SAT 91–95; BMI 33.5
[2020-04-24] MEDS: Omeprazole 40 MG CAPSULE.DR PO ×2 (05:52→17:13)
[2020-04-24] MEDS: Albuterol Sulfate 90 MCG 8 GM INHALER 2 PUFF INHALE ×3 (08:06→15:08)
[2020-04-24 09:52] LABS: Glucose, Whole Blood 263 mg/dL (60-115)
[2020-04-24] MEDS: Ezetimibe 10 MG TABLET PO (10:17)
[2020-04-24] MEDS: Sucralfate 1 GM TABLET PO ×3 (10:17→21:13)
[2020-04-24] MEDS: Losartan Potassium 50 MG TABLET PO (10:17)
[2020-04-24] MEDS: dexAMETHasone sod phosphate 4 MG/ML VIAL 6 MG IVPUSH (10:18)
[2020-04-24] MEDS: 0.9 % Sodium Chloride Flush 3 ML SYRINGE IVFLUSH ×2 (10:18→15:11)
--- NOTE | 2020-04-24 11:04 | MHC.CM.PN ---
Patient requires O2 at 2 liters via NC. Also on Iv azithromax, IV ceftriaxone and IV Decadeon. Discharge plan is home no services. Patient will arrange own transport. CM will continue to follow patient for discharge needs.
[2020-04-24 11:34] LABS: SARS COV2 IgG Positive (Negative)
[2020-04-24 11:44] LABS: Glucose, Whole Blood 259 mg/dL (60-115)
[2020-04-24] MEDS: Insulin Lispro 100 UNIT/ML 3 ML VIAL SUBCUT ×3 (11:56→21:12)
[2020-04-24] MEDS: cefTRIAXone sodium 1 GM in 0.9 % Sodium Chloride 50 ML IV (15:10)
[2020-04-24] MEDS: Azithromycin 500 MG in 0.9 % Sodium Chloride 250 ML 125 MG IV (16:12)
--- NOTE | 2020-04-24 16:42 | P.PNIM_ITS ---
Subjective Subjective Date of Service: 04/24/20 Interval History: still on 2L via NC dyspnea + chest pressure improved no fever Physical Exam Vital Signs: Vital Signs: Last Vital Signs Temp 97.9 F 04/24/20 15:23 Pulse 78 04/24/20 15:23 Resp 18 04/24/20 15:23 BP 138/87 04/24/20 15:23 Pulse Ox 93 04/24/20 15:23 Body Mass Index 33.5 Gen: in no acute distress HEENT: sclera anicteric, moist mucus membranes Neck: supple Lungs: no respiratory distress, auscultation deferred due to COVID-19 Heart: normal peripheral pulses Abd: soft, non-tender, non-distended Ext: no cyanosis, clubbing, or edema Skin: warm/well-perfused Neuro: alert and oriented x3, no focal findings Psych: appropriate affect Objective Data Current Medications Generic Name Dose Route Start Last Admin Trade Name Freq PRN Reason Stop Dose Admin Acetaminophen 650 mg 04/21/20 18:21 04/22/20 05:20 Acetaminophen 325 Mg Tablet PO 650 mg Q6H PRN Administration Pain, Mild (Pain Scale 1-3) Albuterol Sulfate 2 puff 04/21/20 18:24 04/21/20 21:23 Albuterol Sulfate 90 Mcg 8 Gm Inhaler INHALE 2 puff Q2H PRN Administration Shortness of Breath Albuterol Sulfate 2 puff 04/22/20 12:00 04/24/20 15:08 Albuterol Sulfate 90 Mcg 8 Gm Inhaler INHALE 2 puff RQ4H LINDA Administration Dexamethasone Sodium Phosphate 6 mg 04/22/20 14:45 04/24/20 10:18 Dexamethasone Sod Phosphate 4 Mg/Ml Vial IVPUSH 6 mg DAILY LINDA Administration Ezetimibe 10 mg 04/22/20 09:00 04/24/20 10:17 Ezetimibe 10 Mg Tablet PO 10 mg DAILY LINDA Administration Enoxaparin Sodium 40 mg 04/21/20 18:30 04/23/20 18:09 Enoxaparin Sodium 40 Mg/0.4 Ml Syringe SUBCUT 40 mg Q24H LINDA Administration Azithromycin 500 mg/ Sodium 250 mls @ 125 mls/hr 04/22/20 16:00 04/24/20 16 :12 Chloride IV 125 mls/hr Q24H LINDA Administration Ceftriaxone Sodium 1 gm/ 50 mls @ 100 mls/hr 04/22/20 16:00 04/24/20 16:22 Sodium Chloride IV Infused Q24H [facility] Infusion Insulin Human Lispro 0 unit 04/21/20 21:00 04/24/20 11:56 Insulin Lispro 100 Unit/Ml 3 Ml Vial SUBCUT 6 unit QIDACHS [facility] Administration Protocol Losartan Potassium 50 mg 04/22/20 09:00 04/24/20 10:17 Losartan Potassium 50 Mg Tablet PO 50 mg DAILY [facility] Administration Protocol Magnesium Hydroxide 30 ml 04/21/20 18:21 Milk Of Magnesia 30 Ml Oral.Susp PO DAILY PRN Constipation Omeprazole 40 mg 04/22/20 06:30 04/24/20 05:52 Omeprazole 40 Mg Capsule. PO 40 mg BID@0630,1630 [facility] Administration Pharmacy Consult 1 each 04/21/20 12:33 Consult Rx Perform Med Rec MISCELLANE ONCE PRN Consult order Sodium Chloride 3 ml 04/22/20 00:00 04/24/20 15:11 0.9 % Sodium Chloride Flush 3 Ml Syringe IVFLUSH 3 ml QSHIFT [facility] Administration Sucralfate 1 gm 04/21/20 21:00 04/24/20 15:11 Sucralfate 1 Gm Tablet PO 1 gm TID [facility] Administration Zolpidem Tartrate 5 mg 04/21/20 18:21 Zolpidem Tartrate 5 Mg Tablet PO BEDTIME PRN Insomnia Labs CBC & Chem 7: 04/21/20 12:56 04/21/20 14:44 Microbiology Microbiology Results: Microbiology 04/21/20 12:43 Blood - Venous Blood Culture - Preliminary No growth after 48 hours. 04/21/20 12:56 Blood - Venous Blood Culture - Preliminary No growth after 48 hours. Assessment and Plan (1) COVID-19: Status: Acute (2) Hypoxia: Status: Acute (3) Asthma with exacerbation: Status: Acute (4) Hyperlipidemia: Status: Acute (5) HTN (hypertension): Status: Acute (6) Diabetes: Status: Acute Assessment and Plan: hospital d#4 45yo M with DM2, HTN, HLD dx COVID-19 04/11/20 admitted for acute hypoxic respiratory failure # COVID-19 pneumonia - dexamethasone d#07/01 - out of window for remdesivir- not in viral replication phase - ceftriaxone + azithromycin d#3, d/c ABX tomorrow if PCT remains low # acute hypoxic resp failure - wean O2 as tolerated # acute asthma exacerbation - dexamethasone as above, prn KEYSHAWN # DM2 - correction-dose lispro # HTN - losartan # dyslipidemia - ezetimibe # GERD - PPI, sucralfate # VTE ppx - LMWH
[2020-04-24 16:45] LABS: Glucose, Whole Blood 273 mg/dL (60-115)
[2020-04-24] MEDS: Enoxaparin Sodium 40 MG/0.4 ML SYRINGE SUBCUT (17:13)
[2020-04-24 20:05] LABS: Glucose, Whole Blood 238 mg/dL (60-115)
[2020-04-24] MEDS: Zolpidem Tartrate 5 MG TABLET PO (21:16)
[2020-04-25] VITALS (11 sets, daily range): BP systolic 135–153; BP diastolic 71–93; PULSE 67–76; RESP 18–20; TEMP 36.5–37; O2SAT 91–94
[2020-04-25] MEDS: 0.9 % Sodium Chloride Flush 3 ML SYRINGE IVFLUSH ×4 (00:12→20:22)
[2020-04-25] MEDS: Omeprazole 40 MG CAPSULE.DR PO ×2 (06:25→16:59)
[2020-04-25 06:28] LABS: Basophils Percent Auto 0.1 % (0-2); Eosinophils Percent Auto 0.1 % (0-4); Hematocrit 43.6 % (42-52); Hemoglobin 14.1 g/dl (14.0-18.0); Imm Gran Abs Auto 0.12 X10*3/uL (0.00-0.03); Imm Gran Pct Auto 1.6 % (0.0-0.4); Lymphocytes Percent Auto 25.5 % (20-40); MANUAL DIFF FLAG SCAN; Mean Corpuscular HGB Conc 32.3 g/dl (31.0-36.0); Mean Corpuscular Hemoglobin 25.9 pg (27.0-33.0); Mean Corpuscular Volume 80.1 fL (80-98); Mean Platelet Volume 9.6 fL (9.4-12.4); Monocytes Percent Auto 12.3 % (2-11); Neutrophils Absolute Auto 4.7 X10*3/uL (2.0-8.3); Neutrophils Percent Auto 60.4 % (45-73); Platelet Count 305 X10*3/uL (160-400); Red Blood Count 5.44 X10*6/uL (4.60-5.80); Red Cell Distribution Width 12.7 % (11.0-16.0); SCAN SMEAR FLAG 1; White Blood Count 7.7 X10*3/uL (4.8-10.8)
[2020-04-25 06:39] LABS: D Dimer < 200 NG/ML
[2020-04-25 07:04] LABS: Alanine Aminotransferase 65 U/L (0-40); Albumin Level 3.3 g/dL (3.5-5.0); Alkaline Phosphatase 62 U/L (39-117); Anion Gap 13 (12-20); Aspartate Amino Transferase 36 U/L (5-37); Bilirubin Total 0.4 mg/dL (0.0-1.0); Blood Urea Nitrogen 17 mg/dL (9-16); C Reactive Protein 1.87 mg/dL (< or = 0.50); Calcium 8.1 mg/dL (8.4-10.2); Carbon Dioxide 26 mmol/L (22-29); Chloride 105 mmol/L (96-108); Creatinine Clr Calc Pharmacy 130.3; Estimated Glomerular Filt Rate > 60; Glucose Random 142 mg/dL (60-115); Lactate Dehydrogenase 270 U/L (118-273); Potassium 3.9 mmol/L (3.3-5.1); Sodium 140 mmol/L (135-145); Total Protein 6.2 g/dL (6.5-8.0)
[2020-04-25 07:12] LABS: Ferritin 1073 ng/mL (20-250)
[2020-04-25 07:13] LABS: Procalcitonin 0.11 ng/mL
[2020-04-25] MEDS: Albuterol Sulfate 90 MCG 8 GM INHALER 2 PUFF INHALE ×4 (07:49→20:04)
[2020-04-25 08:01] LABS: Glucose, Whole Blood 150 mg/dL (60-115)
[2020-04-25 08:43] LABS: SLIDE REVIEW VERIFIED
[2020-04-25] MEDS: Losartan Potassium 50 MG TABLET PO (08:47)
[2020-04-25] MEDS: dexAMETHasone sod phosphate 4 MG/ML VIAL 6 MG IVPUSH (08:47)
[2020-04-25] MEDS: Ezetimibe 10 MG TABLET PO (08:48)
[2020-04-25] MEDS: Sucralfate 1 GM TABLET PO ×3 (08:48→20:19)
[2020-04-25 11:18] LABS: Glucose, Whole Blood 278 mg/dL (60-115)
[2020-04-25] MEDS: Insulin Lispro 100 UNIT/ML 3 ML VIAL SUBCUT ×3 (12:21→20:19)
--- NOTE | 2020-04-25 13:13 | P.PNIM_ITS ---
Subjective Subjective Date of Service: 04/25/20 Interval History: still some dyspnea with exertion but overall improving, though still needs 2L O2 via NC no fever Physical Exam Vital Signs: Vital Signs: Last Vital Signs Temp 98.2 F 04/25/20 11:20 Pulse 71 04/25/20 11:43 Resp 20 04/25/20 11:20 BP 135/71 04/25/20 11:20 Pulse Ox 92 04/25/20 11:20 Body Mass Index 33.5 Gen: in no acute distress HEENT: sclera anicteric, moist mucus membranes Neck: supple Lungs: no respiratory distress, auscultation deferred due to COVID-19 Heart: normal peripheral pulses Abd: soft, non-tender, non-distended Ext: no cyanosis, clubbing, or edema Skin: warm/well-perfused Neuro: alert and oriented x3, no focal findings Psych: appropriate affect Objective Data Current Medications Generic Name Dose Route Start Last Admin Trade Name Freq PRN Reason Stop Dose Admin Acetaminophen 650 mg 04/21/20 18:21 04/22/20 05:20 Acetaminophen 325 Mg Tablet PO 650 mg Q6H PRN Administration Pain, Mild (Pain Scale 1-3) Albuterol Sulfate 2 puff 04/21/20 18:24 04/21/20 21:23 Albuterol Sulfate 90 Mcg 8 Gm Inhaler INHALE 2 puff Q2H PRN Administration Shortness of Breath Albuterol Sulfate 2 puff 04/22/20 12:00 04/25/20 11:41 Albuterol Sulfate 90 Mcg 8 Gm Inhaler INHALE 2 puff RQ4H LINDA Administration Dexamethasone Sodium Phosphate 6 mg 04/22/20 14:45 04/25/20 08:47 Dexamethasone Sod Phosphate 4 Mg/Ml Vial IVPUSH 6 mg DAILY LINDA Administration Ezetimibe 10 mg 04/22/20 09:00 04/25/20 08:48 Ezetimibe 10 Mg Tablet PO 10 mg DAILY LINDA Administration Enoxaparin Sodium 40 mg 04/21/20 18:30 04/24/20 17:13 Enoxaparin Sodium 40 Mg/0.4 Ml Syringe SUBCUT 40 mg Q24H LINDA Administration Azithromycin 500 mg/ Sodium 250 mls @ 125 mls/hr 04/22/20 16:00 04/24/20 18:31 Chloride IV Infused Q24H LINDA Infusion Ceftriaxone Sodium 1 gm/ 50 mls @ 100 mls/hr 04/22/20 16:00 04/24/20 16:22 Sodium Chloride IV Infused Q24H [facility] Infusion Insulin Human Lispro 0 unit 04/21/20 21:00 04/25/20 12:21 Insulin Lispro 100 Unit/Ml 3 Ml Vial SUBCUT 6 unit QIDACHS [facility] Administration Protocol Losartan Potassium 50 mg 04/22/20 09:00 04/25/20 08:47 Losartan Potassium 50 Mg Tablet PO 50 mg DAILY [facility] Administration Protocol Magnesium Hydroxide 30 ml 04/21/20 18:21 Milk Of Magnesia 30 Ml Oral.Susp PO DAILY PRN Constipation Omeprazole 40 mg 04/22/20 06:30 04/25/20 06:25 Omeprazole 40 Mg Capsule. PO 40 mg BID@0630,2990 [facility] Administration Pharmacy Consult 1 each 04/21/20 12:33 Consult Rx Perform Med Rec MISCELLANE ONCE PRN Consult order Sodium Chloride 3 ml 04/22/20 00:00 04/25/20 08:48 0.9 % Sodium Chloride Flush 3 Ml Syringe IVFLUSH 3 ml QSHIFT [facility] Administration Sucralfate 1 gm 04/21/20 21:00 04/25/20 08:48 Sucralfate 1 Gm Tablet PO 1 gm TID [facility] Administration Zolpidem Tartrate 5 mg 04/21/20 18:21 04/24/20 21:16 Zolpidem Tartrate 5 Mg Tablet PO 5 mg BEDTIME PRN Administration Insomnia Labs CBC & Chem 7: 04/25/20 05:36 04/25/20 05:36 Labs: Laboratory Results - last 24 hr 04/24/20 04/24/20 04/25/20 16:41 19:56 05:36 WBC 7.7 RBC 5.44 Hgb 14.1 Hct 43.6 MCV 80.1 MCH 25.9 L MCHC 32.3 RDW 12.7 Plt Count 305 MPV 9.6 Immature Gran % (Auto) 1.6 H Neut % (Auto) 60.4 Lymph % (Auto) 25.5 [place] % (Auto) 12.3 H Eos % (Auto) 0.1 Baso % (Auto) 0.1 Lymph # (Auto) 2.0 [place] # (Auto) 1.0 Eos # (Auto) 0.0 Baso # (Auto) 0.0 Abs Immat Gran (auto) 0.12 H Absolute Neuts (auto) 4.7 Absolute Nucleated RBC 0.000 Nucleated RBC % (auto) 0.0 Smear Tech's Comments VERIFIED D-Dimer Sodium Potassium Chloride Carbon Dioxide Anion Gap BUN Creatinine Estim Creat Clear Calc Estimated GFR POC Glucose 273 H 238 H Random Glucose Calcium Ferritin Total Bilirubin AST ALT Alkaline Phosphatase Lactate Dehydrogenase C-Reactive Protein Total Protein Albumin Procalcitonin 04/25/20 04/25/20 04/25/20 05:36 05:36 05:36 WBC RBC Hgb Hct MCV MCH MCHC RDW Plt Count MPV Immature Gran % (Auto) Neut % (Auto) Lymph % (Auto) [place] % (Auto) Eos % (Auto) Baso % (Auto) Lymph # (Auto) [place] # (Auto) Eos # (Auto) Baso # (Auto) Abs Immat Gran (auto) Absolute Neuts (auto) Absolute Nucleated RBC Nucleated RBC % (auto) Smear Tech's Comments D-Dimer < 200 Sodium 140 Potassium 3.9 Chloride 105 Carbon Dioxide 26 Anion Gap 13 BUN 17 H Creatinine 0.71 Estim Creat Clear Calc 130.3 Estimated GFR > 60 POC Glucose Random Glucose 142 H Calcium 8.1 L D Ferritin 1073 H Total Bilirubin 0.4 AST 36 D ALT 65 H Alkaline Phosphatase 62 Lactate Dehydrogenase 270 C-Reactive Protein 1.87 H Total Protein 6.2 L Albumin 3.3 L Procalcitonin 0.11 04/25/20 04/25/20 07:57 11:09 WBC RBC Hgb Hct MCV MCH MCHC RDW Plt Count MPV Immature Gran % (Auto) Neut % (Auto) Lymph % (Auto) [place] % (Auto) Eos % (Auto) Baso % (Auto) Lymph # (Auto) [place] # (Auto) Eos # (Auto) Baso # (Auto) Abs Immat Gran (auto) Absolute Neuts (auto) Absolute Nucleated RBC Nucleated RBC % (auto) Smear Tech's Comments D-Dimer Sodium Potassium Chloride Carbon Dioxide Anion Gap BUN Creatinine Estim Creat Clear Calc Estimated GFR POC Glucose 150 H 278 H Random Glucose Calcium Ferritin Total Bilirubin AST ALT Alkaline Phosphatase Lactate Dehydrogenase C-Reactive Protein Total Protein Albumin Procalcitonin Microbiology Microbiology Results: Microbiology 04/21/20 12:43 Blood - Venous Blood Culture - Preliminary No growth after 48 hours. 04/21/20 12:56 Blood - Venous Blood Culture - Preliminary No growth after 48 hours. Assessment and Plan (1) COVID-19: Status: Acute (2) Hypoxia: Status: Acute (3) Asthma with exacerbation: Status: Acute (4) Hyperlipidemia: Status: Acute (5) HTN (hypertension): Status: Acute (6) Diabetes: Status: Acute Assessment and Plan: hospital d#5 45yo M with DM2, HTN, HLD dx COVID-19 04/11/20 admitted for acute hypoxic respiratory failure # COVID-19 pneumonia - dexamethasone d#07/31 - out of window for remdesivir- not in viral replication phase- now IgG positive - d/c ceftriaxone + azithromycin given PCT remains low # acute hypoxic resp failure - wean O2 as tolerated # acute asthma exacerbation - dexamethasone as above, prn KEYSHAWN # DM2 - correction-dose lispro # HTN - losartan # dyslipidemia - ezetimibe # GERD - PPI, sucralfate # VTE ppx - LMWH
[2020-04-25 16:21] LABS: Glucose, Whole Blood 327 mg/dL (60-115)
[2020-04-25] MEDS: Enoxaparin Sodium 40 MG/0.4 ML SYRINGE SUBCUT (16:58)
[2020-04-25 20:20] LABS: Glucose, Whole Blood 290 mg/dL (60-115)
[2020-04-26] VITALS (7 sets, daily range): BP systolic 117–160; BP diastolic 58–86; PULSE 62–91; RESP 18–20; TEMP 36.6–36.8; O2SAT 92–95
[2020-04-26 07:20] LABS: Glucose, Whole Blood 141 mg/dL (60-115)
[2020-04-26] MEDS: Albuterol Sulfate 90 MCG 8 GM INHALER 2 PUFF INHALE ×4 (07:35→19:59)
[2020-04-26] MEDS: 0.9 % Sodium Chloride Flush 3 ML SYRINGE IVFLUSH ×2 (08:13→16:24)
[2020-04-26] MEDS: dexAMETHasone sod phosphate 4 MG/ML VIAL 6 MG IVPUSH (08:14)
[2020-04-26] MEDS: Ezetimibe 10 MG TABLET PO (08:16)
[2020-04-26] MEDS: Sucralfate 1 GM TABLET PO ×3 (08:16→20:39)
[2020-04-26] MEDS: Losartan Potassium 50 MG TABLET PO (08:16)
[2020-04-26] MEDS: Insulin Lispro 100 UNIT/ML 3 ML VIAL SUBCUT ×3 (11:45→20:39)
[2020-04-26 11:49] LABS: Glucose, Whole Blood 343 mg/dL (60-115)
--- NOTE | 2020-04-26 12:20 | HO.PM.IMPN ---
Subjective Subjective Date of Service: 04/26/20 Interval History: dyspnea improving no chest pain no fever Physical Exam Vital Signs: Vital Signs: Last Vital Signs Temp 98.3 F 04/26/20 07:59 Pulse 69 04/26/20 07:59 Resp 18 04/26/20 07:59 BP 117/58 L 04/26/20 07:59 Pulse Ox 94 04/26/20 07:59 Body Mass Index 33.5 Gen: in no acute distress HEENT: sclera anicteric, moist mucus membranes Neck: supple Lungs: no respiratory distress, auscultation deferred due to COVID-19 Heart: normal peripheral pulses Abd: soft, non-tender, non-distended Ext: no cyanosis, clubbing, or edema Skin: warm/well-perfused Neuro: alert and oriented x3, no focal findings Psych: appropriate affect Objective Data Current Medications Generic Name Dose Route Start Last Admin Trade Name Freq PRN Reason Stop Dose Admin Acetaminophen 650 mg 04/21/20 18:21 04/22/20 05:20 Acetaminophen 325 Mg Tablet PO 650 mg Q6H PRN Administration Pain, Mild (Pain Scale 1-3) Albuterol Sulfate 2 puff 04/21/20 18:24 04/21/20 21:23 Albuterol Sulfate 90 Mcg 8 Gm Inhaler INHALE 2 puff Q2H PRN Administration Shortness of Breath Albuterol Sulfate 2 puff 04/22/20 12:00 04/26/20 10:59 Albuterol Sulfate 90 Mcg 8 Gm Inhaler INHALE 2 puff RQ4H LINDA Administration Dexamethasone Sodium Phosphate 6 mg 04/22/20 14:45 04/26/20 08:14 Dexamethasone Sod Phosphate 4 Mg/Ml Vial IVPUSH 6 mg DAILY LINDA Administration Ezetimibe 10 mg 04/22/20 09:00 04/26/20 08:16 Ezetimibe 10 Mg Tablet PO 10 mg DAILY LINDA Administration Enoxaparin Sodium 40 mg 04/21/20 18:30 04/25/20 16:58 Enoxaparin Sodium 40 Mg/0.4 Ml Syringe SUBCUT 40 mg Q24H LINDA Administration Insulin Human Lispro 0 unit 04/21/20 21:00 04/26/20 11:45 Insulin Lispro 100 Unit/Ml 3 Ml Vial SUBCUT 8 unit QIDACHS LINDA Administration Protocol Losartan Potassium 50 mg 04/22/20 09:00 04/26/20 08:16 Losartan Potassium 50 Mg Tablet PO 50 mg DAILY LINDA Administration Protocol Magnesium Hydroxide 30 ml 04/21/20 18:21 Milk Of Magnesia 30 Ml Oral.Susp PO DAILY PRN Constipation Omeprazole 40 mg 04/22/20 06:30 04/26/20 06:07 Omeprazole 40 Mg Capsule.Dr CHAVIRA Not Given BID@0630,1850 [facility] Pharmacy Consult 1 each 04/21/20 12:33 Consult Rx Perform Med Rec MISCELLANE ONCE PRN Consult order Sodium Chloride 3 ml 04/22/20 00:00 04/26/20 08:13 0.9 % Sodium Chloride Flush 3 Ml Syringe IVFLUSH 3 ml QSHIFT [facility] Administration Sucralfate 1 gm 04/21/20 21:00 04/26/20 08:16 Sucralfate 1 Gm Tablet PO 1 gm TID LINDA Administration Zolpidem Tartrate 5 mg 04/21/20 18:21 04/24/20 21:16 Zolpidem Tartrate 5 Mg Tablet PO 5 mg BEDTIME PRN Administration Insomnia Labs CBC & Chem 7: 04/25/20 05:36 04/25/20 05:36 Microbiology Microbiology Results: Microbiology 04/21/20 12:43 Blood - Venous Blood Culture - Preliminary No growth after 48 hours. 04/21/20 12:56 Blood - Venous Blood Culture - Preliminary No growth after 48 hours. Assessment and Plan (1) COVID-19: Status: Acute (2) Hypoxia: Status: Acute (3) Asthma with exacerbation: Status: Acute (4) Hyperlipidemia: Status: Acute (5) HTN (hypertension): Status: Acute (6) Diabetes: Status: Acute Assessment and Plan: hospital d#6 45yo M with DM2, HTN, HLD dx COVID-19 04/11/20 admitted for acute hypoxic respiratory failure # COVID-19 pneumonia - dexamethasone d#08/31 - out of window for remdesivir- not in viral replication phase- now IgG positive - d/c'ed ceftriaxone + azithromycin given low PCT, unlikely bacterial superinfection # acute hypoxic resp failure - wean O2 as tolerated # acute asthma exacerbation - dexamethasone as above, prn KEYSHAWN # DM2 - correction-dose lispro # HTN - losartan # dyslipidemia - ezetimibe # GERD - PPI, sucralfate # VTE ppx - LMWH # dispo - anticipate home when weaned off O2, hopefully in next 1-2d
--- NOTE | 2020-04-26 14:31 | PC.NURSE ---
PT ON ROOM AIR, SATS 92-93%. NO DISTRESS
[2020-04-26 16:23] LABS: Glucose, Whole Blood 256 mg/dL (60-115)
[2020-04-26] MEDS: Omeprazole 40 MG CAPSULE.DR PO (16:23)
[2020-04-26] MEDS: Enoxaparin Sodium 40 MG/0.4 ML SYRINGE SUBCUT (18:37)
[2020-04-26 20:29] LABS: Glucose, Whole Blood 249 mg/dL (60-115)
[2020-04-27] VITALS: BP 164/79; PULSE 58; RESP 18; TEMP 36.8; O2SAT 93
[2020-04-27] MEDS: 0.9 % Sodium Chloride Flush 3 ML SYRINGE IVFLUSH ×2 (00:17→07:47)
[2020-04-27 03:40] VITALS: BP 129/80; PULSE 72; RESP 18; TEMP 36.7; O2SAT 93
[2020-04-27 07:13] VITALS: BP 149/78; PULSE 58; RESP 18; TEMP 36.4; O2SAT 94
[2020-04-27 07:30] LABS: Glucose, Whole Blood 179 mg/dL (60-115)
[2020-04-27] MEDS: Sucralfate 1 GM TABLET PO (07:46)
[2020-04-27] MEDS: Ezetimibe 10 MG TABLET PO (07:46)
[2020-04-27] MEDS: Losartan Potassium 50 MG TABLET PO (07:46)
[2020-04-27] MEDS: Albuterol Sulfate 90 MCG 8 GM INHALER 2 PUFF INHALE ×2 (07:46→11:16)
[2020-04-27 07:47] VITALS: PULSE 71; O2SAT 95
[2020-04-27] MEDS: Omeprazole 40 MG CAPSULE.DR PO (07:47)
[2020-04-27] MEDS: dexAMETHasone sod phosphate 4 MG/ML VIAL 6 MG IVPUSH (07:47)
[2020-04-27] MEDS: Insulin Lispro 100 UNIT/ML 3 ML VIAL SUBCUT (07:47)
--- NOTE | 2020-04-27 10:43 | P.DS_ITS ---
DS: Providers Provider Date of Service: 04/27/20 Date of admission: 04/21/20 18:21 Primary care physician: Peter Redding MD DS: Diagnosis Discharge Diagnosis (1) COVID-19: Status: Acute (2) Asthma with exacerbation: Status: Acute (3) Hyperlipidemia: Status: Acute (4) HTN (hypertension): Status: Acute (5) Diabetes: Status: Acute (6) Acute respiratory failure with hypoxia: Status: Acute DS: Medications Discharge Medications Home Medications: Home Medications Medication Instructions Recorded Confirmed Jardiance 1 tab PO DAILY 04/21/20 04/21/20 Trulicity 1.5 mg SUBCUT Q7D 04/21/20 04/21/20 albuterol sulfate 2 puff INHALATION Q6H PRN 04/21/20 04/21/20 budesonide 0.5 mg INHALATION BID 04/21/20 04/21/20 ezetimibe 1 tab PO DAILY 04/21/20 04/21/20 losartan 1 tab PO DAILY 04/21/20 04/21/20 omeprazole 40 mg PO BID@0630,1630 04/21/20 04/21/20 prednisone 2 tab PO QAM 04/21/20 04/21/20 sucralfate 1 tab PO TID 04/21/20 04/21/20 Previous Rx's Medication Instructions Recorded dexamethasone 6 mg PO DAILY #3 tab 04/27/20 DS: Summary Hospital Course Hospital Course: From admission history and physical by admitting hospitalist Donn Ga MD, 04/21/20: 45-year-old male with diabetes hypertension who was diagnosed with the COVID-19 on April 11 and the managed conservatively. He said he had felt better but then over the last several days also he has had increasing symptoms with a shortness of breath of fever and the presented to the emergency room where he was reportedly noted to be hypoxic with oxygen saturation of 89% on room air up to 93-97% with by nasal cannula. Checks x-ray showed bilateral infiltrate compatible with viral pneumonia and this was confirmed on a CT scan as well and pulmonary embolism is excluded. Patient is given ceftriaxone and azithromycin and Solu-Medrol. The patient was admitted to [facility] under isolation precautions. He was treated wi th dexamethasone. Remdesivir was not given as he was not in the viral replication phase of illness and in fact was IgG positive. Ceftriaxone and azithromycin were discontinued in the absence of evidence for bacterial superinfection. He was given supplemental oxygen, including up to 15 L via non- rebreather mask at one point. However, he improved to the point where he was weaned off of oxygen and did not require home oxygen. He was discharged home to continue 3 more days of dexamethasone. Strict return precautions were reviewed. He should follow up with primary care doctor in 1 week. He is out of the isolation window per CDC precautions. Time Spent with Patient Time attestation: Total time spent providing and/or coordinating discharge services: 35 Discharge coordination time: Greater than 30 minutes Physical Exam Vital Signs: Vital Signs: Last Vital Signs Temp 97.6 F 04/27/20 07:13 Pulse 58 04/27/20 07:13 Resp 18 04/27/20 07:13 BP 149/78 H 04/27/20 07:13 Pulse Ox 94 04/27/20 07:13 Body Mass Index 33.5 Gen: in no acute distress HEENT: sclera anicteric, moist mucus membranes Neck: supple Lungs: no respiratory distress, auscultation deferred due to COVID-19 Heart: normal peripheral pulses Abd: soft, non-tender, non-distended Ext: no cyanosis, clubbing, or edema Skin: warm/well-perfused Neuro: alert and oriented x3, no focal findings Psych: appropriate affect DS: Data Data Completed and Pending Labs on day of discharge: Laboratory Results WBC 7.7 X10*3/uL (4.8-10.8) 04/25/20 05:36 RBC 5.44 X10*6/uL (4.60-5.80) 04/25/20 05:36 Hgb 14.1 g/dl (14.0-18.0) 04/25/20 05:36 Hct 43.6 % (42-52) 04/25/20 05:36 MCV 80.1 fL (80-98) 04/25/20 05:36 MCH 25.9 pg (27.0-33.0) L 04/25/20 05:36 MCHC 32.3 g/dl (31.0-36.0) 04/25/20 05:36 RDW 12.7 % (11.0-16.0) 04/25/20 05:36 Plt Count 305 X10*3/uL (160-400) 04/25/20 05:36 MPV 9.6 fL (9.4-12.4) 04/25/20 05:36 Immature Gran % (Auto) 1.6 % (0.0-0.4) H 04/25/20 05:36 Neut % (Auto) 60.4 % (45-73) 04/25/20 05:36 Lymph % (Auto) 25.5 % (20-40) 04/25/20 05:36 [place] % (Auto) 12.3 % (2-11) H 04/25/20 05:36 Eos % (Auto) 0.1 % (0-4) 04/25/20 05:36 Baso % (Auto) 0.1 % (0-2) 04/25/20 05:36 Lymph # (Auto) 2.0 X10*3/uL (1.2-4.9) 04/25/20 05:36 [place] # (Auto) 1.0 X10*3/uL (0.1-1.2) 04/25/20 05:36 Eos # (Auto) 0.0 X10*3/uL (0.0-0.4) 04/25/20 05:36 Baso # (Auto) 0.0 X10*3/uL (0.0-0.2) 04/25/20 05:36 Abs Immat Gran (auto) 0.12 X10*3/uL (0.00-0.03) H 04/25/20 05:36 Absolute Neuts (auto) 4.7 X10*3/uL (2.0-8.3) 04/25/20 05:36 Absolute Nucleated RBC 0.000 X10*3/uL (0.0-0.012) 04/25/20 05:36 Nucleated RBC % (auto) 0.0 /100WBC (0.0-0.2) 04/25/20 05:36 Smear Tech's Comments VERIFIED 04/25/20 05:36 Hold Purple Top SEE NOTE 04/21/20 12:56 PT 14.0 SEC (10.8-13.0) H 04/21/20 12:57 INR 1.2 (0.9-1.1) H 04/21/20 12:57 APTT 33.1 SEC (24.1-38.0) 04/21/20 12:57 D-Dimer < 200 NG/ML 04/25/20 05:36 Sodium 140 mmol/L (135-145) 04/25/20 05:36 Potassium 3.9 mmol/L (3.3-5.1) 04/25/20 05:36 Chloride 105 mmol/L (96-108) 04/25/20 05:36 Carbon Dioxide 26 mmol/L (22-29) 04/25/20 05:36 Anion Gap 13 (12-20) 04/25/20 05:36 BUN 17 mg/dL (9-16) H 04/25/20 05:36 Creatinine 0.71 mg/dL (0.5-1.4) 04/25/20 05:36 Estim Creat Clear Calc 130.3 04/25/20 05:36 Estimated GFR > 60 04/25/20 05:36 POC Glucose 179 mg/dL (60-115) H 04/27/20 07:13 Random Glucose 142 mg/dL (60-115) H 04/25/20 05:36 Lactic Acid 1.5 mmol/L (0.5-2.0) 04/21/20 12:57 Calcium 8.1 mg/dL (8.4-10.2) L D 04/25/20 05:36 Magnesium 2.0 mg/dL (1.6-2.6) 04/21/20 14:44 Ferritin 1073 ng/mL (20-250) H 04/25/20 05:36 Total Bilirubin 0.4 mg/dL (0.0-1.0) 04/25/20 05:36 Direct Bilirubin 0.2 mg/dL (0.0-0.5) 04/21/20 14:44 AST 36 U/L (5-37) D 04/25/20 05:36 ALT 65 U/L (0-40) H 04/25/20 05:36 Alkaline Phosphatase 62 U/L (39-117) 04/25/20 05:36 Lactate Dehydrogenase 270 U/L (118-273) 04/25/20 05:36 C-Reactive Protein 1.87 mg/dL (< or = 0.50) H 04/25/20 05:36 B-Natriuretic Peptide < 10 pg/mL (<100) 04/21/20 12:56 Total Protein 6.2 g/dL (6.5-8.0) L 04/25/20 05:36 Albumin 3.3 g/dL (3.5-5.0) L 04/25/20 05:36 Procalcitonin 0.11 ng/mL 04/25/20 05:36 Urine Color STRAW 04/21/20 17:27 Urine Appearance CLEAR 04/21/20 17:27 Urine pH 5.5 (5.0-8.0) 04/21/20 17:27 Ur Specific [place] 1.010 (1.005-1.025) 04/21/20 17:27 Urine Protein NEG MG/DL (NEG-TRACE) 04/21/20 17:27 Urine Glucose (UA) 500 MG/DL (NEG) H 04/21/20 17:27 Urine Ketones >=80 MG/DL (NEG) 04/21/20 17:27 Urine Blood NEG (NEG) 04/21/20 17:27 Urine Nitrite NEG (NEG) 04/21/20 17:27 Ur Leukocyte Esterase NEG (NEG) 04/21/20 17:27 SARS-CoV-2 IgG Ab Positive (Negative) 04/24/20 09:45 Impressions Chest X-Ray 04/21/20 12:31 IMPRESSION: Bilateral increase interstitial markings, pneumonitis versus infiltrate. The lungs are hypoexpanded. Chest CTA 04/21/20 13:26 IMPRESSION: No evidence of large or central pulmonary embolism. Evaluation of smaller segmental and subsegmental pulmonary arteries is respiratory motion and bilateral peripheral groundglass attenuation and denser infiltrate, greatest at the lung bases. The appearance is compatible with Covid infection. Small bilateral pleural effusions, right greater than left. Right subcarinal or hilar lymph nodes. Enlarged heart. Discharge Plan Discharge Patient Disposition: Home, Self-Care Referrals: Peter Redding MD [Primary Care Provider] - Discharge Medications: New dexamethasone 6 mg tablet 6 mg PO DAILY Qty: 3 RF: 0 Continued losartan 50 mg tablet 1 tab PO DAILY RF: 0 sucralfate 1 gram tablet 1 tab PO TID RF: 0 prednisone 20 mg tablet 2 tab PO QAM RF: 0 omeprazole 40 mg capsule,delayed release(DR/EC) 40 mg PO BID@0630,1630 RF: 0 budesonide 0.5 mg/2 mL suspension for nebulization 0.5 mg inhalation BID RF: 0 albuterol sulfate 90 mcg/actuation HFA aerosol inhaler 2 puff inhalation Q6H PRN (Reason: wheezing) RF: 0 ezetimibe 10 mg tablet 1 tab PO DAILY RF: 0 Jardiance 25 mg tablet 1 tab PO DAILY RF: 0 Trulicity 1.5 mg/0.5 mL pen injector 1.5 mg subcut Q7D RF: 0 Discharge Orders: Discharge Order (Routine); Ordered 04/27/20 Ordered By: Lyndon Tomas Stand Alone Forms: Patient Portal Discharge page Visit Report Forms: Patient Portal Discharge page Care Plan Goals: relief of shortness of breath Health Concerns: COVID-19 pneumonia Plan of Treatment: take steroid [dexamethasone 6 mg daily] for 3 more days check your oxygen saturation 3x a day and as needed for any shortness of breath; return to hospital if 90% or less follow up with your primary doctor in 1 week you have completed isolation period of 10 days after onset of symptoms, as per CDC guidelines Patient Instructions: COVID-19 (Coronavirus Disease 2019) (DC)
--- NOTE | 2020-04-27 11:01 | MHC.CM.PN ---
Pt will DC home today with no services. pt will arrange his own transportation.
[2020-04-27 11:17] VITALS: O2SAT 94
== END 2020-04-27 13:15 | disposition home or self-care (01) | DRG 720 ==
LOC: HO.ED 16:42 → HO.EDOVER 18:24 → HO.IMC 04-22 18:10
PROVIDERS: Physician Assistant Medical; Admitting Provider Internal Medicine; Emergency Provider Emergency Medicine; PCP Internal Medicine; Visit Provider Family Medicine
DX: A41.89 Other specified sepsis (principal); J96.01 Acute respiratory failure with hypoxia; U07.1 COVID-19; J12.82 Pneumonia due to coronavirus disease 2019; J45.901 Unspecified asthma with (acute) exacerbation; K21.9 Gastro-esophageal reflux disease without esophagitis; E78.5 Hyperlipidemia, unspecified; Z88.6 Allergy status to analgesic agent; Z79.52 Long term (current) use of systemic steroids; Z79.899 Other long term (current) drug therapy
CPT/HCPCS: 36415; 71045; 71275; 74177; 80048; 80053; 80076; 81003; 82728; 82947; 83605; 83615; 83735; 83880; 84145; 85025; 85379; 85610; 85730; 86140; 86769; 87040; 93005; 94640; 94644; 96361; 96374; 96375; 99285; 99291; J0456; J0696; J1100; J1650; J2930; Q9967

== ENCOUNTER 2020-07-03 12:43 | Outpatient (REF) | payer BC, SELFPAY ==
[2020-07-03 15:07] LABS: COVID-19 Test Negative (Negative)
== END 2020-07-03 12:44 | disposition home or self-care (01) ==
LOC: HO.LAB 12:43
PROVIDERS: Visit Provider Internal Medicine
DX: Z20.822 Contact with and (suspected) exposure to COVID-19 (principal)
CPT/HCPCS: 36415; 87635; C9803

== ENCOUNTER 2021-03-27 09:57 | Outpatient (REF) | payer BC, SELFPAY ==
[2021-03-27 12:47] LABS: Binax Internal Control QC Valid; Binax Lot number: 9864; Binax Now Covid-19 Ag Negative (Negative)
== END 2021-03-27 09:58 | disposition home or self-care (01) ==
LOC: HO.LAB 09:57
PROVIDERS: Visit Provider Internal Medicine
DX: Z20.822 Contact with and (suspected) exposure to COVID-19 (principal)
CPT/HCPCS: 36415